=== PATIENT | male | born 1955 | race Caucasian/White ===

== ENCOUNTER 2016-05-11 15:38 | Observation (INO) ==
[2016-05-11] MEDS ORDERED: ASPIRIN PO STA (15:50)
[2016-05-11] MEDS ORDERED: ASPIRIN ONE (15:51)
[2016-05-11 16:06] LABS: MANUAL DIFF NEEDED? NO
[2016-05-11 16:13] LABS: BASO% 0.2 % (0.0-0.8); EOS# 0.34 X1000 (0.0-0.7); HEMATOCRIT 44.4 % (42.0-52.0); HEMOGLOBIN 15.8 g/dL (14.0-18.0); IMM GRAN# 0.01 X1000 (0.0-0.04); IMM GRAN% 0.1 % (0.0-0.5); LYMPH# 1.87 X1000 (1.2-3.4); LYMPH% 22.1 % (20.5-51.1); MCH 31.3 PG (27-31); MCHC 35.6 g/dL (33-37); MCV 88.1 FL (81-99); MONO% 11.8 % (1.7-9.3); MPV 12.5 FL (7.4-10.4); NEUT% 61.8 % (42.2-75.2); PLT 161 X1000 (130-400); RBC 5.04 XMIL (4.7-6.1)
[2016-05-11 16:25] LABS: INR 0.91 (0.86-1.15); PROTIME 12.6 Seconds (12.1-15.5)
[2016-05-11 16:26] LABS: PTT PL 27.1 Seconds (22.6-43.9)
[2016-05-11 16:28] LABS: AGAP 12; ALBUMIN 4.5 g/dL (3.5-5.0); ALKALINE PHOSPHATASE 80 U/L (32-122); BUN 18 mg/dL (8-22); CALCIUM 9.8 mg/dL (8.8-10.2); CHLORIDE 106 mmol/L (98-107); COSMO 285; GOT 36 U/L (10-34); GPT 41 U/L (10-44); MAGNESIUM 2.1 mg/dL (1.5-2.7); POTASSIUM 3.8 mmol/L (3.5-5.1); SODIUM 142 mmol/L (136-145); TCO2 24 mmol/L (25-35); TOTAL PROTEIN 7.4 g/dL (6.3-8.3)
[2016-05-11 16:35] LABS: CK PROFILE 408 U/L (24-204)
--- NOTE | 2016-05-11 16:41 | Diag Imaging Result Document ---
PROCEDURE NAME: CHEST-2 VIEWS - 05/11/2016 FRONTAL AND LATERAL CHEST, 2 VIEWS. FINDINGS: The lungs are well expanded. The heart is not enlarged. The vessels are not distended. No pneumonia. No pleural effusions. No free air beneath the diaphragm. IMPRESSION: No acute abnormality.
[2016-05-11] MEDS ORDERED: NS 1,000 ML IV ONE ×2 (16:54→21:33)
[2016-05-11] MEDS ORDERED: LOPRESSOR IV ONE (16:54)
[2016-05-11 17:26] LABS: CK INDEX 3.4 (0.0-2.5); CK-MB 13.69 ng/mL (0.0-5.0)
--- NOTE | 2016-05-11 18:29 | EKG Report ---
Test Performed on : 05/11/2016 4:03:55 PM Test Reason : CHEST PAIN Blood Pressure : / mmHG Vent. Rate : 071 BPM Atrial Rate : 071 BPM P-R Int : 162 ms QRS Dur : 086 ms QT Int : 362 ms P-R-T Axes : 035 003 018 degrees QTc Int : 393 ms Normal sinus rhythm. Normal ECG No previous ECGs available Unconfirmed Result
--- NOTE | 2016-05-11 19:31 | Diag Imaging Result Document ---
PROCEDURE NAME: ANGIOGRAM/PULMONARY ARTERIES - 05/11/2016 STUDY: CT chest with intravenous contrast. COMPARISON: No comparison films. There is normal opacification of the pulmonary arteries and their major branches. No thoracic aortic aneurysm or dissection. No cardiomegaly. No pleural effusions. No enlarged mediastinal or hilar lymph nodes. There are several calcified mediastinal lymph nodes. No consolidation. Minimal atelectasis in the lower lungs. No bronchiectasis. IMPRESSION: 1. No pulmonary emboli. 2. No pneumonia. A preliminary report was given at 6:17 p.m.
[2016-05-11 19:59] LABS: CK INDEX 3.2 (0.0-2.5); CK-MB 10.33 ng/mL (0.0-5.0)
--- NOTE | 2016-05-11 20:54 | EKG Report ---
Test Performed on : 05/11/2016 8:39:09 PM Test Reason : cp Blood Pressure : / mmHG Vent. Rate : 055 BPM Atrial Rate : 055 BPM P-R Int : 132 ms QRS Dur : 080 ms QT Int : 392 ms P-R-T Axes : 009 -04 003 degrees QTc Int : 375 ms Sinus bradycardia. Minimal voltage criteria for LVH, may be normal variant Borderline ECG When compared with ECG of 11-MAY-2016 16:03, No significant change was found Unconfirmed Result
[2016-05-11] MEDS ORDERED: PLAVIX PO ONE (21:33)
--- NOTE | 2016-05-11 22:41 | EKG Report ---
Test Performed on : 05/11/2016 10:07:11 PM Test Reason : PAIN Blood Pressure : / mmHG Vent. Rate : 051 BPM Atrial Rate : 051 BPM P-R Int : 148 ms QRS Dur : 082 ms QT Int : 402 ms P-R-T Axes : 016 -07 -05 degrees QTc Int : 370 ms Sinus bradycardia. Minimal voltage criteria for LVH, may be normal variant Borderline ECG When compared with ECG of 11-MAY-2016 20:39, (Unconfirmed) No significant change was found Unconfirmed Result
[2016-05-11 22:44] LABS: CK INDEX 3.2 (0.0-2.5); CK-MB 9.11 ng/mL (0.0-5.0)
[2016-05-12 07:30] VITALS: BP 176/96
[2016-05-12] MEDS ORDERED: LEXISCAN ONE (13:10)
--- NOTE | 2016-05-12 14:47 | CONSULTATION ---
DATE OF CONSULTATION: 05/12/2016 CARDIOLOGY CONSULT: IMPRESSION: 1. Atypical chest pain. 2. Borderline CPK-MB index with normal troponins. 3. Atherosclerotic coronary disease with remote history of previous coronary angioplasty/stent procedure in 2002. 4. Hypertension. Current blood pressure elevated. Patient missed antihypertensive medications this morning prior to having stress test. 5. Hypercholesterolemia. RECOMMENDATIONS: 1. Agree with plans for stress myocardial perfusion imaging with exercise sestamibi study. 2. Resume antihypertensive medications. Patient may require increase in antihypertensive regimen but this certainly could be followed through on an outpatient basis. 3. If stress study negative for inducible ischemia, reasonable for patient to be discharged to have followup as an outpatient. HISTORY: This is 60-year-old, white male, with past history of remote coronary angioplasty/stent procedure in 2002, hypertension and hyperlipidemia was admitted through the emergency room after an episode of chest pain. He relates that he mowed 2 yards yesterday. After he sat down to rest he felt some fleeting sharp left anterior chest discomfort. Discomfort might be provoked by deep breath. Symptoms resolved but he decided to go to the emergency room for evaluation. ECG was benign. His CPK was elevated around 400 with a borderline MB index. Troponin was normal. He was admitted for further evaluation. He denied any further chest discomfort. While CPK-MB index has been borderline his serial troponins have been normal. He was scheduled for stress testing this morning. He has not yet had his antihypertensive medications. PAST MEDICAL HISTORY: 1. Atherosclerotic coronary disease. 2. Hypertension. 3. Hyperlipidemia. MEDICATIONS: Prior to admission as listed. SOCIAL HISTORY: He is from [place], [place], but spends a great deal of his time in the [place], [place] area. He does not smoke nor use alcohol. FAMILY HISTORY: Positive for early coronary disease. REVIEW OF SYSTEMS: Pulmonary: Negative. Gastrointestinal: Negative. Constitutional: Negative. The remainder of review of systems negative/noncontributory with 14 total systems reviewed. PHYSICAL EXAMINATION: General: This is a pleasant, middle-aged male, in no distress. Vital Signs: As recorded and noteworthy for patient being hypertensive with blood pressure 170/106. HEENT Exam: Extraocular movements appear intact. Mucous membranes are moist. Neck: Supple. No JV distention. There are no carotid bruits. Chest: Clear to auscultation. Cardiac: Reveals a regular rate and rhythm without appreciable murmur or gallop. Abdomen: Soft, nontender. Bowel sounds are normal. Extremities: Without edema. Neurologic Exam: Reveals him to be alert and fully oriented. Speech is fluent. He moves all 4 extremities equally well. Skin: Warm and dry. Psychiatric Exam: Reveals mood to be appropriate. DIAGNOSTIC DATA: ECG demonstrates sinus rhythm, is within normal limits. cc: Yovani Peralta MD
--- NOTE | 2016-05-12 15:39 | Diag Imaging Result Document ---
PROCEDURE NAME: MYOCARDIAL PERF SCAN, STR/REST - 05/11/2016 HISTORY: [id number] male. PROCEDURE: Rest/stress walking Lexiscan myocardial perfusion study. REQUESTING PHYSICIAN: Dr. Manuel INDICATION: Chest pain. Coronary heart disease. DESCRIPTION: The patient came into the nuclear lab, received a rest injection of technetium-99 sestamibi 14.9 mCi. Multiple tomographic views of the cardiac structure were obtained at rest. Subsequently patient underwent a walking Lexiscan protocol. He was injected with 0.4 mg of Lexiscan combined with a treadmill study. At peak infusion, injected with technetium-99 sestamibi 43 mCi. Multiple tomographic views of the cardiac structure were obtained following completion of protocol. SUMMARY OF ELECTROCARDIOGRAPHIC PORTION OF STUDY: Resting electrocardiogram shows sinus rhythm, rate 71 beats per minute, resting blood pressure 167/105. Resting ECG looks normal. The patient during the study achieved a maximum heart rate of 134 beats per minute, representing 83% of maximum predicted heart rate for his age. The maximum blood pressure recorded was 201/98. The peak infusion ECG showed sinus tachycardia without any ischemic changes. Patient reported no chest pain, shortness of breath, or palpitations. No arrhythmias were noted. Following the completion of infusion, the heart rate and blood pressure returned back to baseline. SUMMARY: Electrocardiographic response to walking Lexiscan protocol is deemed to be unremarkable. SUMMARY OF THE MYOCARDIAL PERFUSION PORTION OF THE STUDY: Poststress tomographic views of the left ventricle showed normal homogeneous distribution of radiotracer throughout the entire left ventricular myocardium. There is no evidence of any postexercise defect. The rest images show basically normal perfusion. There is some inferior attenuation. Polar plots revealed the same. There is no evidence of any inducible ischemia. No myocardial scar. Questionable inferior attenuation present. Gated SPECT shows normal left ventricular systolic function. Ejection fraction is estimated at 75% with normal ventricular volumes, no wall motion abnormality. The lung/heart ratio is normal. TID is normal. SUMMARY: This study showed: 1. Normal electrocardiographic response to a walking Lexiscan protocol. 2. Normal poststress myocardial perfusion scan. There is no scintigraphic evidence of pharmacologically induced myocardial ischemia utilizing a walking Lexiscan protocol. 3. Normal left ventricular systolic function. Ejection fraction estimated at 75% with both the [employer] protocol as well as the MyoMet[employer] protocol. 4. Ventricular volumes are normal. No wall motion abnormality noted. Study represents low risk for ischemic events. Clinical correlation recommended. cc: MD Cali Odell MD
[2016-05-12] MEDS ORDERED: KLONOPIN PO SCH (17:00)
[2016-05-12] MEDS ORDERED: LOPRESSOR PO STA (17:54)
[2016-05-12] MEDS ORDERED: PRINIVIL PO STA (17:54)
[2016-05-12] MEDS ORDERED: LIPITOR PO SCH (21:00)
[2016-05-13] MEDS ORDERED: PRINIVIL PO SCH (09:00)
[2016-05-13] MEDS ORDERED: LOPRESSOR PO SCH (09:00)
[2016-05-13] MEDS ORDERED: ASPIRIN PO SCH (09:00)
--- NOTE | 2016-05-13 16:07 | ED EKG INTERP ---
This chart was entered by Yin Montoya Scribe, acting as scribe for Cali Manuel MD. EKG Interpretation - EKG Time of EKG reading by physician:: 22:07 EKG Read and Signed by:: Cali Manuel EKG Interpretation (*Must complete 3 of following elements*): Abnormal Rate: 51 Rhythm: sinus bradycardia QRS: LVH (minimal voltage criteria) This chart was documented by the indicated scribe, (Yin Montoya Scribe) and accurately reflects the services I performed and decisions made by me, Cali Manuel MD, as attested by the provider's signature.
--- NOTE | 2016-05-24 17:15 | PROVIDER DOCUMENTATION ---
This chart was entered by Sarah Beth Ty Scribe, acting as scribe for Moises Le MD. HPI-Chest Pain - General Chief Complaint: Chest Pain Stated Complaint: CHEST PAINS Time Seen by Provider: 05/11/16 15:48 Allergies/Adverse Reactions: Patient Allergies Allergy/AdvReac Type Severity Reaction Status Date / Time No Known Allergies Allergy Verified 05/11/16 15:48 Home Medications: Home Medication List Medication Instructions Recorded Confirmed Last Taken Type ATORVAstatin [Lipitor] 40 mg PO DAILY 05/11/16 05/11/16 Unknown History Aspirin 81 mg PO DAILY 05/11/16 05/11/16 Unknown History Clonazepam 0.5 mg PO TID 05/11/16 05/11/16 Unknown History LISINOpril [Prinivil] 20 mg PO DAILY 05/11/16 05/11/16 Unknown History Metoprolol [Lopressor] 50 mg PO DAILY 05/11/16 05/11/16 Unknown History - History of Present Illness-CP Nature of Presenting Problem: Pt is 60 y/o M presents to the ED with L side chest pain. Pt states chest pain came on after he mowed his grass. Pt denies SOB. Pt states pain only with a deep breath. Pt denies diabetes. Location: reports: other (L side) Chest Pain Radiation: reports: no radiation Quality of Pain: reports: aching Severity in ED: mild Onset/Duration: 1 hour ago Timing: still present Context/Activities at Onset: reports: light activity Modifying Factors: improves with: nothing Associated Symptoms: reports: denies symptoms Nitro Today/Relief: no nitro taken today Aspirin Treatment Today: no aspirin today Prior Chest Pain/Cardiac Workup: reports: stress test Similar Symptoms Previously?: No Recently Seen Here or By Another Healthcare Provider: No Review of Systems - Adult - REVIEW OF SYSTEMS - ADULT Constitutional: reports: no symptoms reported Eyes: reports: no symptoms reported Ears, Nose, Mouth & Throat: reports: no symptoms reported Cardiovascular: reports: chest pain (L side). denies: heart murmur, irregular heart rate Respiratory: reports: no symptoms reported Gastrointestinal: reports: no symptoms reported Genitourinary: reports: no symptoms reported Musculoskeletal: reports: no symptoms reported Integumentary: reports: no symptoms reported Neurological: reports: no symptoms reported Psychiatric: reports: no symptoms reported Endocrine: reports: no symptoms reported Hematologic/Lymphatic: reports: no symptoms reported Allergic/Immunologic: reports: no symptoms reported All Other Systems: Reviewed and Negative Past History - Adult - PAST MEDICAL HISTORY-ADULT Review of Records: reports: Nursing Assessment Review, Medications Reviewed, Social history reviewed & non-contributory. Major Childhood Illnesses: reports: denies history Cardiovascular: reports: HTN, hyperlipidemia Respiratory: reports: denies history Gastrointestinal: reports: denies history Obstetrical/Gynecological: reports: denies history Genitourinary: reports: denies history Musculoskeletal: reports: denies history Neurological: reports: denies history Endocrine/Immune: reports: denies history Other Conditions: reports: denies history - PRIOR SURGERIES/PROCEDURES Surgical/Procedure History: reports: cardiac stent - IMMUNIZATION STATUS Childhood Immunizations: See Nurse Assessment Flu Vaccine: See Nurse Assessment - FAMILY HISTORY Family History: reviewed, not pertinent - SOCIAL HISTORY Smoking: denies Substance Use: denies Living Situation: family Physical Exam-General - PHYSICAL EXAM-ADULT Initial Vital Signs Reviewed: Yes - CONSTITUTIONAL General Appearance: appears well, alert, no apparent distress - EYES Eyes: PERRL/EOMI, pink conjunctivae - HEAD, EARS, NOSE, MOUTH & THROAT HENMT: normocephalic/atraumatic, moist mucous membranes, normal ENT inspection, TMs normal, pharynx normal - NECK Neck: non-tender, full range of motion, supple, normal inspection - RESPIRATORY Respiratory: chest non-tender, lungs clear, normal breath sounds, no pleuratic chest pain, no respiratory distress, no accessory muscle use - CARDIOVASCULAR Cardiovascular: normal peripheral pulses, regular rate, rhythm, no edema, no gallop, no JVD, no murmur - GASTROINTESTINAL (ABDOMEN) Abdominal Exam: normal bowel sounds, non tender, soft, no organomegaly, no pulsatile mass - LYMPHATIC Lymphatic: no adenopathy - MUSCULOSKELETAL Back Exam: normal inspection, no CVA tenderness, no vertebral tenderness Extremity: normal range of motion, non-tender, normal gait, normal inspection, no pedal edema, no calf tenderness, normal capillary refill, pelvis stable - SKIN Integumentary: normal color, normal turgor, warm/dry - NEUROLOGIC Neurologic: photoengraving finisher II-XII nml as tested, no motor/sensory deficits - PSYCHIATRIC Psych/Mental Status: normal mood/affect, normal thought content, normal thought process, oriented x 3 Progress - PLAN OF CARE/RESULTS Progress/Plan/Lab Results: Orders Category Date Time Status Admit - [facility] Routine AdmDCTranf 05/11/16 21:33 Ordered Activity - Up Ad Sita ORDERED Care 05/11/16 21:33 Active Cardiac Monitoring DIRECTED Care 05/11/16 15:50 Active Oxygen Therapy- ED Nursing DIRECTED Care 05/11/16 15:50 Active Saline Loc NOW Care 05/11/16 15:50 Completed Vital Signs Order ARRIVAL TO ROOM Care 05/11/16 21:33 Active Regular Diet Diet 05/11/16 21:34 Completed ANGIOGRAM/PULMONARY ARTERIES [CT] Stat Exams 05/11/16 16:56 Completed CHEST-2 VIEWS [RAD] Stat Exams 05/11/16 15:50 Completed MYOCARDIAL PERF SCAN, STR/REST [NM] Stat Exams 05/11/16 21:33 Completed CBC WITH ELECTRONIC DIFF [HEME] Stat Lab 05/11/16 16:00 Completed CK PROFILE [SP CHEM] Stat Lab 05/11/16 16:00 Completed CK PROFILE [SP CHEM] Stat Lab 05/11/16 18:35 Completed CK PROFILE [SP CHEM] Timed Lab 05/11/16 21:55 Completed COMPREHENSIVE METABOLIC PANEL [CHEM] Stat Lab 05/11/16 16:[address] Com[address] D-DIMER PL [COAG] Stat Lab 05/11/16 16:00 Completed MAGNESIUM [CHEM] Stat Lab 05/11/16 16:00 Completed PRO B-NATRIURETIC PEPTIDE Stat Lab 05/11/16 16:00 Completed [address]IME WITH INR PL [COAG] Stat Lab 05/11/16 16:[address] [COAG] Stat Lab 05/11/16 16:00 Completed TROPONIN T Stat Lab 05/11/16 16:00 Completed TROPONIN T Stat Lab 05/11/16 18:35 Completed TROPONIN T Timed Lab 05/11/16 21:55 Completed 0.9% Sodium Chloride Inj [Ns] 1,000 ml Med 05/11/16 21:33 Discontinued IV 100 mls/hr 0.9% Sodium Chloride Inj [Ns] 1,000 ml Med 05/11/16 16:54 Discontinued IV 999 mls/hr Aspirin Med 05/11/16 15:51 Discontinued 325 mg .ROUTE .STK-MED ONE Aspirin Med 05/11/16 15:50 Discontinued 325 mg PO STAT STA Clopidogrel [Plavix] Med 05/11/16 21:33 Discontinued 75 mg PO NOW ONE Metoprolol [Lopressor] Med 05/11/16 16:54 Discontinued 5 mg IV NOW ONE Oxygen Device Routine Oth 05/11/16 21:33 Active Telemetry [OM.EQ] Routine Oth 05/11/16 21:33 Active EKG [EKG] Stat Ther 05/11/16 15:50 Draft EKG [EKG] Stat Ther 05/11/16 20:42 Draft EKG [EKG] Stat Ther 05/11/16 22:30 Draft Transfer/Admit Order [TRANSFER] Routine Transfer 05/11/16 21:41 Completed Result Diagrams: 05/11/16 16:00 05/11/16 16:00 - EKG 1 Time of EKG reading by physician:: 16:03 EKG Read and Signed by:: Moises Le EKG Interpretation (*Must complete 3 of following elements*): Normal Rate: 71 Rhythm: normal sinus rhythm Comments: normal ECG - XRAY 1 XRAY: Bilateral XRAY Study: Chest Impression: Normal XRAY Interpretation: no acute disease - CHANGE OF SHIFT REPORT (ED Provider) Report Given and Care Transferred to:: Dr. Manuel Time of Transfer: 18:05 Items Pending: Labs, CT/MRI Results Departure - Departure Time of Disposition Decision: 22:10 DIAGNOSIS: Chest pain Qualifiers: Chest pain type: unspecified Qualified Code(s): R07.9 - Chest pain, unspecified Disposition: ADMITTED INPATIENT 09 Certified Medical Emergency: Emergent Condition: Stable This chart was documented by the indicated scribe, (Sarah Beth Ty Scribe) and accurately reflects the services I performed and decisions made by Rey fuentes Wenli X, MD, as attested by the provider's signature.
--- NOTE | 2016-05-25 15:29 | HISTORY AND PHYSICAL ---
CHIEF COMPLAINT: Chest pain. HISTORY OF PRESENT ILLNESS: This is a 60-year-old male who presented to the emergency room complaining of left-sided chest pain that he states started after mowing his grass. He describes this as an aching that goes across the left side, around to the left axillary area. It is increased with any movement. It does decrease when the movement stops. This was provoked by deep breathing and coughing prior to coming to the emergency room. Symptoms did resolve within an hour or 2 spontaneously, but he did decide to come to the emergency room for further evaluation. EKG was benign, his CPK elevated to around 400 with a borderline index, with normal troponin. PAST MEDICAL HISTORY: Coronary artery disease with stents in 2002, hypertension, hyperlipidemia. PAST SURGICAL HISTORY: Ear surgery. SOCIAL HISTORY: Denies alcohol, tobacco, or illicit drug use. ALLERGIES: No known drug allergies. HOME MEDICATIONS: A list will be obtained. REVIEW OF SYSTEMS: A 14-point review of systems is discussed with patient, with pertinent positives stated in the HPI. Otherwise, negative. PHYSICAL EXAMINATION: GENERAL: This is a very pleasant male who was sitting on the side of the bed in no distress. VITAL SIGNS: Blood pressure is 176/96 with a heart rate of 60, respirations 18, temperature 97.6 degrees, with room air saturations of 95% to 98%. HEENT: Head is normocephalic, atraumatic. Pupils are equal, round, react to light. EOMs are intact. Sclerae are anicteric. Mucous membranes are moist. NECK: Supple, with trachea midline. CARDIOVASCULAR: Regular rate and rhythm. S1 and S2 are appreciated. PULMONARY: Breath sounds are clear, with no increased work of breathing noted. GASTROINTESTINAL: Abdomen is soft, nontender, nondistended, with bowel sounds in all 4 quadrants. EXTREMITIES: No clubbing, cyanosis, or edema. Calves are nontender. Pulses are palpable x4. DIAGNOSTICS: WBC is 8.4 with a hemoglobin of 15.8, hematocrit 44.4, and platelets of 161,000. Sodium is 142, potassium 3.8, BUN 18, creatinine 1.1 with a glucose of 107. D-dimer is 1.08. CK peaked at 408, did drop to 282. CK-MB 13.69 and it dropped to 9.11. Troponins were negative on multiple occasions. Chest x-ray revealed no acute abnormality, with vessels not distended, no pneumonia, no pleural effusions, no free air beneath the diaphragm, well expanded lungs, and the heart is not enlarged. Pulmonary arteriogram revealed no pulmonary emboli, no pneumonia. ASSESSMENT: 1. Atypical chest pain. 2. Elevated D-dimer with negative CTA. 3. Borderline CPK and CK-MB with normal troponins. 4. Arteriosclerotic coronary artery disease with a history of percutaneous coronary intervention in 2002, 5. Hypertension. 6. Hypercholesterolemia. PLAN: The patient will be admitted to the hospital and placed on telemetry. He has remained n.p.o. for a myocardial perfusion scan this morning. We will consult Cardiology. We will identify and continue his home medications as appropriate. Further treatments pending hospital course. Dictated by JERARDO Rutherford for Mello Ardon MD cc: JERARDO Rutherford MD
--- NOTE | 2016-05-26 12:56 | DISCHARGE SUMMARY ---
ADMISSION DATE: 05/11/2016 DISCHARGE DATE: 05/12/2016 DIAGNOSES: 1. Atypical chest pain. 2. Borderline CPK/MB with normal troponin. 3. Arteriosclerotic coronary disease with a history of PCI in 2002. 4. Hypertension. 5. Elevated D-dimer with negative CTA. 6. Hypercholesterolemia. CONSULTS: Dr. Yovani Peralta, Cardiology. DIAGNOSTICS: 1. Chest x-ray 05/11/2016 revealed a negative exam. 2. Pulmonary arteriogram revealed no pulmonary emboli. No pneumonia. 3. Myocardial perfusion scan revealed normal EKG response to a walking Lexiscan protocol. 4. Normal post-stress myocardial perfusion scan with no scintigraphic evidence of pharmacologically-induced myocardial ischemia utilizing a walking Lexiscan protocol. Normal left ventricular systolic function. Ejection fraction estimated at 75%. Ventricular volumes are normal. No wall motion abnormality noted. Study represents a low risk for ischemic events. HOSPITAL COURSE: Mr. Mosley developed left-sided chest pain after mowing 2 yards. This pain he describes as an aching type pain that was exacerbated by movement and deep breath and cough. It did resolve spontaneously after a few hours. He opted to present to the emergency room for further evaluation. Troponins were negative. He did have an elevated D-dimer, CTA was negative. Myocardial perfusion scan was negative. He had no recurrence of chest pain. He was evaluated by Dr. Peralta, Cardiology. PHYSICAL EXAMINATION: Cardiovascular: Regular rate and rhythm. S1 and S2 are appreciated. Pulmonary: Breath sounds are clear with no increased work of breathing noted. Gastrointestinal: Abdomen is soft, nontender, nondistended with bowel sounds in all 4 quadrants. Extremities: No clubbing, cyanosis, or edema. Calves nontender. Pulses palpable x4. Vital Signs: Blood pressure is 160/86 with a heart rate of 63, respirations are 18, temperature is 97.8 degrees with room air saturations 96%. DISCHARGE ACTIVITY: As tolerated. DISCHARGE DIET: Healthy heart. DISCHARGE MEDICATIONS: 1. Aspirin 81 mg daily. 2. Lisinopril 20 daily. 3. Lopressor 50 daily. 4. Klonopin 0.5 t.i.d. 5. Lipitor 40 daily. FOLLOW UP: He is to followup with his primary care physician in the next 3-5 weeks. He is being discharged home in stable condition with family members. Once again, this dictation he is delayed dictation for date of service 05/12/2016. Dictated by JERARDO Rutherford for Mello Ardon MD cc: JERARDO Rutherford MD
== END 2016-05-12 20:40 | disposition home or self-care (01) ==
LOC: P.ED 15:38 → P.MEDSURG 15:38
PROVIDERS: ATTEND Family Medicine